=== PATIENT | male | born 1985 | race African-American/Black ===

== ENCOUNTER 2018-01-11 14:36 | Emergency (ER) | payer SELFPAY ==
[~2018-01-11] VITALS: Ht 180.3 cm; Wt 70.0 kg
[~2018-01-11 14:36] MED LIST: ONDA4TAB7 OR; Z.0.NO CURRENT MEDS
[2018-01-11 14:39] VITALS: BP 151/67; PULSE 60; RESP 16; TEMP 98.7; O2SAT 100
[2018-01-11 16:11] VITALS: O2SAT 100
[2018-01-11] MEDS ORDERED: SODIUM CHLORIDE 0.9% FLUSH 10 ML FLUSH IVF PRN (16:15)
--- NOTE | 2018-01-11 16:24 | RADRPT ---
EXAM DATE: 01/11/2018 4:15 PM EDT AGE/SEX: 32 years / Male INDICATIONS: Chest pressure. CLINICAL DATA: This is the patient's initial encounter. Patient reports that signs and symptoms have been present for 2 days and indicates a pain score of 4/10. MEDICAL/SURGICAL HISTORY: None. None. COMPARISON: No prior exams available for comparison. FINDINGS: PA and lateral views of the chest demonstrate the lungs to be symmetrically aerated without evidence of mass, infiltrate or effusion. The cardiomediastinal contours are unremarkable. Osseous structures are intact. CONCLUSION: Negative examination. Electronically signed by: Reese Garcia MD 01/11/2018 4:22 PM EDT
[2018-01-11 16:43] LABS: AUTOMATED NEUTROPHIL # 4.4 TH/MM3 (1.8-7.7); BASOPHIL # 0.1 TH/MM3 (0-0.2); BASOPHIL % 1.3 % (0.0-2.0); EOSINOPHIL # 0.1 TH/MM3 (0-0.4); EOSINOPHIL % 1.5 % (0.0-4.0); HEMATOCRIT 47.1 % (39.0-51.0); HEMOGLOBIN 16.1 GM/DL (13.0-17.0); LYMPH % 23.5 % (9.0-44.0); LYMPHOCYTE # 1.5 TH/MM3 (1.0-4.8); MEAN CELL VOLUME 86.1 FL (80.0-100.0); MEAN CORPUSCULAR HEMOGLOBIN 29.5 PG (27.0-34.0); MEAN CORPUSCULAR HGB CONC 34.3 % (32.0-36.0); MEAN PLATELET VOLUME 9.4 FL (7.0-11.0); MONO % 6.8 % (0.0-8.0); MONOCYTE # 0.4 TH/MM3 (0-0.9); NEUT % 66.9 % (16.0-70.0); PLATELET COUNT 172 TH/MM3 (150-450); RED BLOOD COUNT 5.46 MIL/MM3 (4.50-5.90); RED CELL DISTRIBUTION WIDTH 12.6 % (11.6-17.2); WHITE BLOOD COUNT 6.5 TH/MM3 (4.0-11.0)
[2018-01-11] MEDS ORDERED: KETOROLAC TROMETHAMINE 30 MG/ML (IVP) VIAL IV PUSH ONE (16:45)
[2018-01-11 16:52] VITALS: BP 121/75; PULSE 71; RESP 46; O2SAT 99
[2018-01-11 17:15] LABS: CHLORIDE 103 MEQ/L (98-107); SODIUM (NA) 138 MEQ/L (136-145)
[2018-01-11 17:19] LABS: ALBUMIN 4.5 GM/DL (3.4-5.0); BICARBONATE 27.1 MEQ/L (21.0-32.0); BLOOD UREA NITROGEN 10 MG/DL (7-18); GLUCOSE,RANDOM 87 MG/DL (74-106); MAGNESIUM 2.1 MG/DL (1.5-2.5)
[2018-01-11 17:22] LABS: ALT (GPT) 23 U/L (12-78); AST (GOT) 24 U/L (15-37); GLOMERULAR FILTRATION RATE 106 ML/MIN (>89)
[2018-01-11 17:23] LABS: TOTAL BILIRUBIN ADULT 0.5 MG/DL (0.2-1.0)
[2018-01-11 17:25] VITALS: BP 91/61; PULSE 105; RESP 16; O2SAT 98
[2018-01-11 17:25] LABS: ALKALINE PHOSPHATASE 64 U/L (45-117)
[2018-01-11 17:27] LABS: TROPONIN I LESS THAN 0.02 NG/ML (0.02-0.05)
[2018-01-11] MEDS ORDERED: NAPR500T2 PO (17:32)
--- NOTE | 2018-01-11 17:32 | PD ---
HPI Chief Complaint: Chest Pain Time Seen by Provider: 15:56 Travel History International Travel<30 days: Yes Contact w/Intl Traveler<30days: Yes Name of Country Traveled to: [facility] [address] Traveled to known affect area: No History of Present Illness HPI 32-year-old man who presents to the emergency department left-sided chest discomfort. This been ongoing for the past couple days or so. It is really worse with any lifting or movement of the left arm. He does some lifting at work but there has been no real change. No new activities. No injuries. No pleuritic chest pain. No shortness of breath. Has never had similar symptoms before. Otherwise had been feeling well and healthy before the onset of the symptoms. No other complaints. History Past Medical History Medical History: Denies Significant Hx Tetanus Vaccination: Unknown Influenza Vaccination: No Past Surgical History Surgical History: No Previous Surgery Social History Alcohol Use: Yes ([employer]) Tobacco Use: Yes (1/2 EVERY 2-3 DAYS. ) Allergies-Medications (Allergen,Severity, Reaction): Coded Allergies: No Known Allergies (Verified Adverse Reaction, Unknown, 01/11/18) Reported Meds & Prescriptions Reported Meds & Active Scripts Active Review of Systems Except as stated in HPI: all other systems reviewed are Neg Physical Exam Narrative GENERAL: Well-appearing 32-year-old woman, no acute distress. SKIN: Focused skin assessment warm/dry. HEAD: Atraumatic. Normocephalic. EYES: Pupils equal and round. No scleral icterus. No injection or drainage. ENT: No nasal bleeding or discharge. Mucous membranes pink and moist. NECK: Trachea midline. No JVD. CARDIOVASCULAR: Regular rate and rhythm. No murmur appreciated. RESPIRATORY: No accessory muscle use. Clear to auscultation. Breath sounds equal bilaterally. GASTROINTESTINAL: Abdomen soft, non-tender, nondistended. Hepatic and splenic margins not palpable. MUSCULOSKELETAL: No obvious deformities. Slight tenderness to the left chest wall and the left pectoralis muscle. NEUROLOGICAL: Awake and alert. No obvious cranial nerve deficits. Motor grossly within normal limits. Normal speech. PSYCHIATRIC: Appropriate mood and affect; insight and judgment normal. Data Data Last Documented VS Vital Signs Date Time Temp Pulse Resp B/P (MAP) Pulse Ox O2 Delivery O2 Flow Rate FiO2 01/11/18 16:52 71 46 121/75 (90) 99 Room Air 01/11/18 14:39 98.7 Orders Orders Electrocardiogram (01/11/18 14:43) Electrocardiogram (01/11/18 16:03) Complete Blood Count With Diff (01/11/18 16:03) Comprehensive Metabolic Panel (01/11/18 16:03) Magnesium (Mg) (01/11/18 16:03) Troponin I (01/11/18 16:03) Ecg Monitoring (01/11/18 16:03) Iv Access Insert/Monitor (01/11/18 16:03) Oximetry (01/11/18 16:03) Oxygen Administration (01/11/18 16:03) Sodium Chloride 0.9% Flush (Ns Flush) (01/11/18 16:15) Chest, Pa & Lat (01/11/18 16:03) Ketorolac Inj (Toradol Inj) (01/11/18 16:45) Labs Laboratory Tests Test 01/11/18 16:20 White Blood Count 6.5 TH/MM3 Red Blood Count 5.46 MIL/MM3 Hemoglobin 16.1 GM/DL Hematocrit 47.1 % Mean Corpuscular Volume 86.1 FL Mean Corpuscular Hemoglobin 29.5 PG Mean Corpuscular Hemoglobin Concent 34.3 % Red Cell Distribution Width 12.6 % Platelet Count 172 TH/MM3 Mean Platelet Volume 9.4 FL Neutrophils (%) (Auto) 66.9 % Lymphocytes (%) (Auto) 23.5 % Monocytes (%) (Auto) 6.8 % Eosinophils (%) (Auto) 1.5 % Basophils (%) (Auto) 1.3 % Neutrophils # (Auto) 4.4 TH/MM3 Lymphocytes # (Auto) 1.5 TH/MM3 Monocytes # (Auto) 0.4 TH/MM3 Eosinophils # (Auto) 0.1 TH/MM3 Basophils # (Auto) 0.1 TH/MM3 CBC Comment DIFF FINAL Differential Comment Blood Urea Nitrogen 10 MG/DL Creatinine 1.00 MG/DL Random Glucose 87 MG/DL Total Protein 8.0 GM/DL Albumin 4.5 GM/DL Calcium Level 9.0 MG/DL Magnesium Level 2.1 MG/DL Alkaline Phosphatase 64 U/L Aspartate Amino Transf (AST/SGOT) 24 U/L Alanine Aminotransferase (ALT/SGPT) 23 U/L Total Bilirubin 0.5 MG/DL Sodium Level 138 MEQ/L Potassium Level 4.2 MEQ/L Chloride Level 103 MEQ/L Carbon Dioxide Level 27.1 MEQ/L Anion Gap 8 MEQ/L Estimat Glomerular Filtration Rate 106 ML/MIN [facility] Medical Decision Making Medical Screen Exam Complete: Yes Emergency Medical Condition: Yes Interpretation(s) My review of EKG: Sinus rhythm at a rate of 62, ST elevations across the anterior precordium with upsloping ST segments, likely early repolarization. I do not see definitive evidence of pericarditis. I do not think this is ischemic change. Q waves are old with tall. CBC is unremarkable CMP is unremarkable Troponins negative Chest x-ray negative Differential Diagnosis Chest wall pain, pleurisy, PE, pericarditis, ACS, other Narrative Course Medical decision making Is a well 32-year-old male presents emergency department with what appears to be muscular skeletal left-sided chest wall pain. Worse with any movement. No exertional component. Does not appear to be consistent with PE or dissection. EKG shows what appears to be early repolarization. Given the changes, will check a troponin. I expect this will be normal. Will plan NSAIDs and outpatient follow-up. Diagnosis Primary Impression: Chest wall pain Additional Instructions: Take naproxen as prescribed. Drink plenty fluids stay well-hydrated. Follow-up with your primary doctor for likely well in 1-2 weeks. Return emerged part for any worsening chest pain, trouble breathing, or any other new or worsening symptoms. Med/Other Pt SpecificInfo: Prescription(s) given Scripts Naproxen (Naproxen) 500 Mg Tab 500 MG PO BID, #20 TAB 0 Refills Prov: William Casiano MD 01/11/18 Disposition: 01 DISCHARGE HOME Condition: Stable William Casiano MD Jan 11, 2018 17:32
--- NOTE | 2018-01-12 15:09 | EKG ---
Date Performed: 01/11/2018 Time Performed: 14:43:16 PTAGE: 32 years EKG: Sinus rhythm POSSIBLE RIGHT VENTRICULAR CONDUCTION DELAY ST ELEVATION, PROBABLY EARLY REPOLARIZATION TALL T-WAVES , SUGGESTS HYPERKALEMIA ABNORMAL ECG NO PREVIOUS TRACING DOCTOR: Donald Enrique Interpretating Date/Time 01/12/2018 15:07:52
== END 2018-01-11 18:00 | disposition home or self-care (01) ==
LOC: PHED 14:36
DX: R07.89 Other chest pain (principal); R94.31 Abnormal electrocardiogram [ECG] [EKG]; F17.210 Nicotine dependence, cigarettes, uncomplicated
CPT/HCPCS: 71046; 80053; 83735; 84484; 85025; 93005; 96374; 99285; J1885